=== PATIENT | female | born 1955 | race African-American/Black ===

== ENCOUNTER 2016-08-17 06:17 | Observation (INO) | payer OTHER ==
[~2016-08-17] VITALS: Ht 182.9 cm; Wt 121.7 kg
[~2016-08-17 06:17] MED LIST: ATEN50TA PO; LEVO75TA3 PO; LISI10TA3 PO; MUPIROCIN 2% CREAM 15 GM TOP ONE; TRIA37.5 PO
[2016-08-17] MEDS ORDERED: ZOLP10TA3 PO (07:05)
[2016-08-17 07:11] VITALS: BP 122/60; PULSE 56; RESP 16; TEMP 98; O2SAT 99
[2016-08-17] MEDS ORDERED: AMPICILLIN-SULBACTAM INJ 3 GM VIAL ONE (07:13)
[2016-08-17] MEDS ORDERED: SODIUM CHLORIDE 0.9% INJ 100 ML ONE ×2 (07:15→07:17)
[2016-08-17] MEDS ORDERED: LACTATED RINGER'S 1000 ML INJ 1,000 ML ONE (08:19)
[2016-08-17] MEDS ORDERED: FAMOTIDINE 20 MG/2 ML VIAL ONE (08:36)
[2016-08-17] MEDS ORDERED: DEXAMETHASONE SOD PHOS 4 MG/ML VIAL ONE (08:36)
[2016-08-17] MEDS ORDERED: OXYMETAZOLINE HCL 0.05% 15 ML NASAL SPRAY ONE (08:59)
[2016-08-17] MEDS ORDERED: LIDOCAINE 1%/EPINEPHrine 1:100,000 SOLN 30 ML VIAL INFIL ONE (08:59)
[2016-08-17] MEDS ORDERED: MUPIROCIN 2% CREAM 15 GM TOP ONE (09:39)
[2016-08-17] MEDS ORDERED: MORPHINE SULFATE 4 MG/ML INJ ONE (09:54)
[2016-08-17] MEDS ORDERED: MIDAZOLAM HCL 2 MG/2 ML VIAL ONE (09:56)
[2016-08-17] MEDS ORDERED: PROPOFOL 200 MG/20 ML AMP IV ONE (12:00)
[2016-08-17] MEDS ORDERED: ACETAMINOPHEN 325MG/HYDROcodone 7.5MG/15ML UDC PO PRN ×2 (12:00→14:30)
[2016-08-17] MEDS ORDERED: ONDANSETRON HCL 4 MG/2 ML VIAL IV PUSH ONE (12:00)
[2016-08-17] MEDS ORDERED: LACTATED RINGER'S 1000 ML INJ 1,000 ML IV ONE (12:00)
[2016-08-17] MEDS ORDERED: ACETAMINOPHEN 325MG/HYDROcodone 7.5MG/15ML UDC PO ONE (12:10)
[2016-08-17] MEDS ORDERED: ONDANSETRON HCL 4 MG/2 ML VIAL IV PUSH PRN (12:30)
[2016-08-17] MEDS ORDERED: ZOLPIDEM TARTRATE 10 MG TAB PO PRN (14:45)
[2016-08-17 15:15] VITALS: O2SAT 100
[2016-08-17 15:30] VITALS: BP 121/55; PULSE 55; RESP 18; TEMP 97.1; O2SAT 98
[2016-08-17] MEDS: AMPICILLIN/SULBAC 3 GM/NS 100 ML IV SCH ×4 (15:36→23:09)
[2016-08-17] MEDS: LACTATED RINGER'S 1000 ML INJ 1,000 ML IV SCH (15:36)
--- NOTE | 2016-08-17 17:36 | EKG ---
Date Performed: 08/17/2016 Time Performed: 07:08:22 PTAGE: 61 years EKG: Sinus bradycardia. Since PREVIOUS TRACING , no significant change noted Normal ECG except for rate PREVIOUS TRACIN 01/04/2013 11.45 DOCTOR: Cuong Huggins Interpretating Date/Time 08/17/2016 17:36:00
[2016-08-17] MEDS ORDERED: DEXAMETHASONE SOD PHOS 4 MG/ML VIAL IV ONE (19:15)
[2016-08-17] MEDS: diphenhydrAMINE HCL 50 MG CAP PO PRN (19:21)
[2016-08-17 19:55] VITALS: O2SAT 99
[2016-08-17 20:00] VITALS: BP 121/65; PULSE 54; RESP 20; TEMP 97.1; O2SAT 99
[2016-08-17] MEDS ORDERED: FAMOTIDINE 20 MG TAB PO SCH (21:00)
[2016-08-18] VITALS: BP 123/67; PULSE 57; RESP 20; TEMP 97.2; O2SAT 99
[2016-08-18] MEDS: LACTATED RINGER'S 1000 ML INJ 1,000 ML IV SCH (01:09)
[2016-08-18] MEDS: diphenhydrAMINE HCL 50 MG CAP PO PRN (03:04)
[2016-08-18] MEDS ORDERED: LEVOTHYROXINE SODIUM 75 MCG TAB PO SCH (06:00)
[2016-08-18 08:00] VITALS: BP 108/51; PULSE 60; RESP 20; TEMP 96.7; O2SAT 100
[2016-08-18] MEDS ORDERED: LISINOPRIL 10 MG TAB PO SCH (09:00)
[2016-08-18] MEDS ORDERED: ATENOLOL 50 MG TAB PO SCH (09:00)
[2016-08-18] MEDS ORDERED: TRIAMTERENE/HCTZ 37.5 MG/25 MG TAB PO SCH (09:00)
--- NOTE | 2016-08-19 07:49 | MP ---
cc: GIANNA JENKINS M.D. DATE OF OPERATION August 17, [address] Gianna jenkins PREOPERATIVE DIAGNOSES 1. Adenotonsillar hypertrophy. 2. Chronic tonsillitis. 3. Nasal airway obstruction. 4. Nasal septal deviation. 5. Hypertrophy of inferior turbinates. 6. Obstructive sleep apnea. POSTOPERATIVE DIAGNOSES 1. Adenotonsillar hypertrophy. 2. Chronic tonsillitis. 3. Nasal airway obstruction. 4. Nasal septal deviation. 5. Hypertrophy of inferior turbinates. 6. Obstructive sleep apnea. OPERATION PERFORMED 1. Septoplasty. 2. Bilateral submucosal resection of inferior turbinates. 3. Adenotonsillectomy. INDICATIONS FOR PROCEDURE The indications are documented in the history and physical. DESCRIPTION OF OPERATION The patient was taken to OR #2 and placed in the supine position. Following induction of general anesthesia and intubation, the nose was packed bilaterally with cotton pledgets saturated in 0.05% oxymetazoline. The nasal septum and inferior turbinates were injected with a total of 12 mL of 1% Xylocaine with epinephrine 1:100,000 and she was then prepped and draped for surgery. The packing was removed and a hemitransfixion incision was made in the left nasal vestibule and through this incision the mucosa of septum was elevated posteriorly bilaterally as far as the rostrum of the sphenoid, followed by removal of a total of 2 x 2-cm of thick, twisted and irregular quadrangular cartilage preserving 1.5 cm dorsal and caudal cartilaginous struts. When this was completed, the bony septum was removed using Jann-Mejia forceps and the maxillary crest was removed with a 6-mm Anastasia chisel preserving the anterior nasal spine. The incision was then closed with a running suture of 4-0 chromic and the mucosal layers of septum were approximated to each other with a quilting stitch of 4-0 plain gut. The inferior turbinates were then fractured out medially and stab incisions were opened along their inferior surfaces. Through these incisions the submucosal soft tissue was reduced using a curette and preserving the conchal bone. The incisions were then cauterized using the suction Bovie at 35 lantigua and the remnants of the inferior turbinates were then re-lateralized to the lateral nasal wall. The nose was then packed with Merocel tampons coated in bacitracin ointment. The table was then turned 90 degrees and a shoulder roll was put in place along with a McIvor mouth gag. The tonsils were then removed using the ArthroCare Coblator technique. A few sites of venous bleeding were cauterized using the bipolar cautery. When this was done, the adenoids were removed using the suction Bovie at 35 lantigua. The stomach was aspirated of several cc's of bilious gastric contents using a #18 [place] sump NG tube. When this was completed the mouth gag was removed and the procedure was terminated. The patient was reversed from anesthesia and taken to Recovery in good condition. There were no complications. Blood loss was 60 mL. MD KIRILL Carlisle/MOR /2:30 PM /7:35 AM
== END 2016-08-18 09:16 | disposition home or self-care (01) ==
LOC: PHSDC 06:17 → PH3B 14:00
PROVIDERS: ADMIT Otolaryngology; ATTEND Otolaryngology
DX: J34.3 Hypertrophy of nasal turbinates (principal); J34.2 Deviated nasal septum; J35.3 Hypertrophy of tonsils with hypertrophy of adenoids; G47.33 Obstructive sleep apnea (adult) (pediatric); I10 Essential (primary) hypertension
CPT/HCPCS: 00160; 30140; 30520; 42821; 88304; 93005; 94762; G0378; J0295; J1100; J2250; J2270; J2405; J3010; J7120; Q0163